=== PATIENT | female | born 2000 | race Hispanic/Latino ===

== ENCOUNTER 2023-10-08 19:16 | Emergency (ER) | payer OTHER ==
[~2023-10-08] VITALS: Ht 170.2 cm; Wt 117.9 kg
[2023-10-08] MEDS: ACETAMINOPHEN 500 MG TABLET PO ONE (20:03)
[2023-10-08 21:03] VITALS: BP 149/79; PULSE 76; RESP 20; O2SAT 99
[2023-10-08] MEDS ORDERED: IBUP-2077 PO (21:32)
== END 2023-10-08 21:35 | disposition home or self-care (01) ==
LOC: EDH 19:16
DX: R51.9 Headache, unspecified (principal); F07.81 Postconcussional syndrome
CPT/HCPCS: 70450

== ENCOUNTER 2024-02-03 17:38 | Emergency (ER) | payer SELFPAY ==
[~2024-02-03] VITALS: Ht 167.6 cm; Wt 79.4 kg
[~2024-02-03 17:38] MED LIST: IBUP-2077 PO
[2024-02-03] MEDS: 0.9%NACL 1000ML 1,000 ML IV ONE (18:14)
[2024-02-03 18:16] LABS: BASOPHILS # (AUTO) 0.08 K/uL (0.00-0.20); BASOPHILS % (AUTO) 0.6 % (0.0-5.0); EOSINOPHILS # (AUTO) 0.17 K/uL (0.00-0.70); EOSINOPHILS % (AUTO) 1.2 % (0.0-8.0); HEMATOCRIT 40.9 % (36-48); IMMATURE GRANULOCYTE ABSOLUTE 0.09 K/uL (0-1); LYMPHOCYTES # (AUTO) 3.2 K/uL (1.0-4.8); MEAN CORPUSCULAR VOLUME 85.2 fL (79-99); MONOCYTES # (AUTO) 0.7 K/uL (0.1-1.0); MONOCYTES % (AUTO) 4.9 % (3.0-13.0); NEUTROPHILS # (AUTO) 9.7 K/uL (1.8-7.7); NEUTROPHILS % (AUTO) 69.7 % (40.0-77.0); PLATELET COUNT (AUTO) 312 K/uL (130-400); RED CELL DISTRIBUTION WIDTH 11.4 % (11.0-15.5); WHITE BLOOD COUNT (AUTO) 13.9 K/uL (4.8-10.8)
[2024-02-03 18:27] LABS: CREATININE 0.7 mg/dL (0.5-1.0); POTASSIUM 3.8 mmol/L (3.5-5.1)
[2024-02-03 18:43] LABS: CREATINE KINASE, TOTAL 43 U/L (21-232)
[2024-02-03 19:47] VITALS: BP 126/52; PULSE 96; RESP 12; TEMP 97.6; O2SAT 100
[2024-02-03 19:52] LABS: ADD UA MICROSCOPIC YES; APPEARANCE,URINE CLEAR (CLEAR); BILIRUBIN,URINE NEGATIVE (NEGATIVE); COLOR,URINE LIGHT-YELLOW (YELLOW); GLUCOSE, URINE (UA) NEGATIVE (NEGATIVE); KETONES,URINE 20 mg/dL (NEGATIVE); LEUKOCYTE ESTERASE ,URINE 25 Leu/uL (NEGATIVE); NITRATE,URINE NEGATIVE (NEGATIVE); OCCULT BLOOD,URINE NEGATIVE (NEGATIVE); PH,URINE 7.5 (5.0-8.0); PROTEIN,URINE NEGATIVE (NEGATIVE); UROBILINOGEN,URINE 0.2 mg/dL (0.2-1.0)
[2024-02-03 19:54] LABS: MUCUS,URINE RARE LPF (None Seen); RBC,URINE 0-1 /HPF (0-1); SQUAMOUS EPITHELIAL CELL,UR FEW /HPF (0-2)
[2024-02-03] MEDS ORDERED: FAMO-136 PO (20:39)
[2024-02-03] MEDS ORDERED: ONDA-243 PO (20:39)
[2024-02-03] MEDS ORDERED: ondanSETRON 4MG INJ IVP ONE (21:00)
== END 2024-02-03 20:49 | disposition home or self-care (01) ==
LOC: EDH 17:38
DX: R55 Syncope and collapse (principal); J45.909 Unspecified asthma, uncomplicated; E11.9 Type 2 diabetes mellitus without complications; Z79.899 Other long term (current) drug therapy
CPT/HCPCS: 99284; 82550; 84484; 80048; 84703; 85025; 81001; 36415; 93005; J7030

== ENCOUNTER 2024-04-03 21:30 | Emergency (ER) | payer SELFPAY ==
[~2024-04-03] VITALS: Ht 170.2 cm; Wt 107.5 kg
[~2024-04-03 21:30] MED LIST changes: +FAMO-136 PO; +ONDA-243 PO
[2024-04-03 22:03] LABS: RAPID GROUP A STREP negative (NEGATIVE)
[2024-04-03 22:05] LABS: SARS-CoV-2, RNA, NAAT NEGATIVE SARS CoV-2 (NEGATIVE)
[2024-04-03 22:13] LABS: INFLUENZA TYPE A Negative For Type A (NEGATIVE); INFLUENZA TYPE B Negative For Type B (NEGATIVE)
[2024-04-03] MEDS: guaiFENesin-DM 200/20MG 10ML PO ONE (22:31)
[2024-04-03] MEDS: acetaMINOPHEN 500 MG TABLET PO ONE (22:32)
--- NOTE | 2024-04-03 23:08 | ERN ---
ED Note History of Present Illness Stated Complaint: C/O SORE THROAT,COUGH,RUNNY NOSE Chief Complaint: Sore Throat Time Seen by MD: 21:32 Time Seen by Midlevel: 21:32 Dictation: The patient is a 23-year-old female with a history of asthma, diabetes not on any treatment who presents to the emergency department with complaints of sore throat, nasal congestion, nonproductive cough, occasional nausea with the cough onset yesterday. Patient denies any abdominal pain, fevers. Allergies: Coded Allergies: No Known Allergies (Unverified Allergy, Unknown, 10/08/23) Home Meds Active Scripts Famotidine (Pepcid) 20 Mg Tablet, 20 MG PO BID for 5 Days, #10 TAB Prov:SALINAS RODRIGUEZ 02/03/24 Ondansetron (Ondansetron Odt) 4 Mg Tab.rapdis, 4 MG PO BID for 7 Days, #14 TAB Prov:SALINAS RODRIGUEZ 02/03/24 Ibuprofen (Ibuprofen 800 mg Tab) 800 Mg Tab, 800 MG PO Q8H PRN for fever or pain, #30 TAB 0 Refills Prov:GAYLE KIDD CERTIFIED [employer] 10/08/23 Past Medical History Past Medical History: Asthma, Diabetes-Type II Surgical History: None History: Not Applicable LMP: Jan 28, 2024 RN Note Reviewed/Agreed w/PFSH: Yes Review of System Dictation Constitutional: Negative for fever,chills, and weight loss Eyes: Negative for injury, pain,redness, and discharge ENT: Negative for injury,pain or swelling positive for nasal congestion, sore throat Cardiovascular: Negative for chest pain, palpitations, and edema Respiratory: Negative for shortness of breath, , and wheezing, positive for cough Abdomen/GI: Negative for abdominal pain, nausea, vomiting, diarrhea, and constipation Back: Negative for injury and pain : Negative for injury, bleeding and discharge MS/Extremity: Negative for injury and deformity Skin: Negative for rash, and discoloration Neuro: Negative for headache, weakness, numbness, tingling, and seizure Psych: Negative for suicide ideation, homicidal ideation, and hallucinations Initial Vital Sign VS Vital Signs Date Time Temp Pulse Resp B/P (MAP) Pulse Ox O2 Delivery O2 Flow Rate FiO2 04/03/24 21:33 97.5 114 20 148/88 97 Room Air 04/03/24 22:00 0 21 Physical Exam Dictation Vital Signs reviewed General Appearance: Alert, oriented x 3, no acute distress, well developed, nourished. Head and Face: non-traumatic. Eyes: PERRL, pink conjunctivas, eyelid no trauma, anterior chamber with arcus senilis. Ears: Pinnas intact and no signs of trauma or erythema ear canals clear and no discharge TM no erythema Nose: No discharge, no bleeding. Oropharynx: Mouth normal, tongue pink. pharynx clear,no erythema, tonsils no exudates, 3+, no abscesses noted, mucous membrane moist Neck: Supple, non-tender, no thyromegaly, no masses, no JVD, no bruits Breast:Deferred Chest:No tenderness, no crepitus, no paradoxical movement, no retractions Lungs:Clear, well-ventilated, symmetric, no rales, no wheezing, no rhonchi, no stridor, good breath sounds bilaterally Heart: Regular rate, regular rhythm, no murmur, no gallops Vascular: no peripheral edema, Abdomen: Soft, positive bowel sounds, nondistended, no guarding, nontender, no rebound, no masses no hepatomegaly, no splenomegaly, no Morris's s ign, no hernias. Rectal: Deferred Genital: Deferred Neurological: Normal speech, motor function intact, sensory function intact Musculoskeletal: Neck nontender, full range of motion, back nontender, full range of motion, Extremities: nontender, full range of motion Skin: Color pink, dry, no turgor, no rash, no lacerations, no abrasions, no contusions. Lymphatic: Deferred Results (Laboratory/Radiology) Laboratory/Radiology Laboratory Tests Test 04/03/24 21:42 Influenza Type A Antigen Negative For Type A Influenza Type B Antigen Negative For Type B SARS-CoV-2, RNA, NAAT NEGATIVE SARS CoV-2 Group A Streptococcus Rapid negative (NEGATIVE) Labs Reviewed?: Yes ED Course ED Course Orders Procedure Category Date Status Time Covid Rna Naat LAB 04/03/24 Complete 21:32 Influenza Type A & B, LAB 04/03/24 Complete Rapid 21:32 Rapid (Group A Strep) LAB 04/03/24 Complete 21:32 Guaifenesin-Dm PHA 04/03/24 Complete 200/20mg 10ml 22:00 Acetaminophen 500mg PHA 04/03/24 Complete Tab (Tylenol 500mg T 22:00 Current Medications Medications (Trade) Dose Ordered Sig/Steffany Route PRN Reason Start Time Stop Time Status Last Admin Dose Admin Acetaminophen (TYLenol 500MG TAB) 1,000 mg ONCE ONCE PO 04/03/24 22:00 04/03/24 22:01 DC 04/03/24 22:32 Guaifenesin/ Dextromethorphan (RobiTUSSin DM 200/20MG 10ML) 10 ml ONCE ONCE PO 04/03/24 22:00 04/03/24 22:01 DC 04/03/24 22:31 Vital Signs Date Time Temp Pulse Resp B/P (MAP) Pulse Ox O2 Delivery O2 Flow Rate FiO2 04/03/24 22:00 97.9 66 20 124/88 100 Room Air* 0 21 04/03/24 21:33 97.5 114 20 148/88 97 Room Air Medical Decision Making MDM The patient is a 23-year-old female with a history of asthma, diabetes not on any treatment who presents to the emergency department with complaints of sore throat, nasal congestion, nonproductive cough, occasional nausea with the cough onset yesterday. Patient denies any abdominal pain, fevers. Serology swabs negative. Patient symptoms consistent with a an upper respiratory infection. Patient at this time in no apparent distress. Patient with no shortness of breath, clear lung sounds. Will be discharged to follow up with PCP. Differential diagnosis: COVID 19 infection, flu a, flu B, pharyngitis, Need for hospitalization: Patient does not meet criteria for hospitalization. There are no social concerns with this patient. DX & DISP Disposition: Discharge Departure Impression: Primary Impression: URI (upper respiratory infection) Condition: Stable Additional Instructions: Please follow up with primary doctor in 1-2 days. FOLLOW-UP WITH PRIMARY CARE PROVIDER IN 1 TO 2 DAYS. TAKE MEDICATIONS DIRECTED HERE IN THE EMERGENCY ROOM. OKAY TO CONTINUE HOME MEDICATIONS UNLESS OTHERWISE DISCUSSED DURING YOUR VISIT IN THE EMERGENCY ROOM TODAY. RETURN TO YOUR NEAREST EMERGENCY ROOM IF SYMPTOMS WORSEN OR IF THERE IS NO IMPROVEMENT. CALL 911 IF YOU NEED IMMEDIATE ASSISTANCE. TAKE TYLENOL OR MOTRIN [id number] NEEDED AND IF NO CONTRAINDICATIONS ARE PRESENT. INCREASE ORAL HYDRATION. A WOUND CULTURE OR URINE CULTURE WAS ORDERED HERE IN THE EMERGENCY ROOM DEPARTMENT PLEASE FOLLOW-UP WITH PRIMARY CARE PROVIDER AND ADVISE THEM TO GET REPEAT PORTS FROM OUR FACILITY. IF YOU HAD ANY MARLENI WRAP/SPLINTS THAT WERE APPLIED HERE, PLEASE DO NOT REMOVE THEM UNTIL YOU SEE YOUR PRIMARY CARE OR SPECIALTY. Referrals: SELF,REFERRAL (PCP) Time of Disposition: 23:07 I have reviewed the case, and I agree with, Diagnosis and Plan JIMMIE MAGUIRE BRASS FINISHER Apr 03, 2024 23:08
[2024-04-03 23:12] VITALS: BP 122/84; PULSE 66; RESP 20; TEMP 97.8; O2SAT 100
== END 2024-04-03 23:20 | disposition home or self-care (01) ==
LOC: EDH 21:30
DX: J06.9 Acute upper respiratory infection, unspecified (principal); E11.9 Type 2 diabetes mellitus without complications; J45.909 Unspecified asthma, uncomplicated; Z20.822 Contact with and (suspected) exposure to COVID-19
CPT/HCPCS: 87635; 87804; 87880; 99283